=== PATIENT | male | born 1985 | race African-American/Black ===

== ENCOUNTER 2019-05-09 23:14 | Emergency (ER) | payer SELFPAY ==
[~2019-05-09] VITALS: Ht 193 cm; Wt 92.4 kg
[2019-05-09 23:15] VITALS: BP 154/94
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
[2019-05-09] MEDS ORDERED: PHENYLEPHRINE 0.5% NASAL SPRAY 15ML BOTTLE. NS PRN (23:30)
[2019-05-09] MEDS ORDERED: BACITRACIN ZINC TOPICAL OINT PACKET. TP ONE (23:45)
[2019-05-09] MEDS ORDERED: DIPHTH,PERTUSS(ACELL),TET TOX 0.5 ML DISP.SYRIN. VAX IM ONE (23:45)
[2019-05-09] MEDS ORDERED: COCAINE 4% TOPICAL SOLUTION. TP ONE (23:45)
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
[2019-05-10] MEDS: oxyCODONE/APAP 5/325 1 TAB TABLET PO ONE ×2 (01:12→01:13)
== END 2019-05-10 01:17 | disposition home or self-care (01) ==
LOC: EEVIPCON 23:14 → ER 23:14
DX: S02.2XXA Fracture of nasal bones, initial encounter for closed fracture (principal); S20.212A Contusion of left front wall of thorax, initial encounter; R16.0 Hepatomegaly, not elsewhere classified; Y04.2XXA Assault by strike against or bumped into by another person, initial encounter; Y93.89 Activity, other specified; Y92.098 Other place in other non-institutional residence as the place of occurrence of the external cause; Y99.8 Other external cause status
CPT/HCPCS: 70450; 70486; 71250; 72125; 90471; 90715; 99284-25